=== PATIENT | female | born 1990 | race Caucasian/White ===

== ENCOUNTER 2016-08-27 06:56 | Day surgery (SDC) | payer OTHER ==
[~2016-08-27 06:56] MED LIST: PRENATAL-U CAPS1 CAP PO; PROAIR HFA8.5 GM INH
[2016-08-27 07:33] LABS: URINE BILIRUBIN NEGATIVE (NEG); URINE BLOOD LARGE (NEG); URINE GLUCOSE (UA) NEGATIVE (NEG); URINE KETONE NEGATIVE (NEG); URINE LEUKOCYTE ESTERASE POSITIVE (NEG); URINE NITRITE NEGATIVE (NEG); URINE PROTEIN NEGATIVE (NEG); URINE SPECIFIC GRAVITY 1.015 (1.003-1.030)
[2016-08-27 07:38] LABS: URINE APPEARANCE HAZY; URINE COLOR YELLOW
[2016-08-27 07:42] LABS: URINE RBC 15-20 /[HPF] (0-5)
[2016-08-27 07:43] LABS: URINE AMORPHOUS 1+; URINE MUCUS 1+
[2016-08-27 07:47] LABS: BASO % 0.4 % (0-2); EOS % 1.9 % (0-7); EOSINOPHIL ABSOLUTE COUNT 0.1 tho/cmm (0.0-0.7); HCT-HEMATOCRIT 38.1 % (34.0-49.0); HGB-HEMOGLOBIN 12.7 gm/dl (12.0-15.5); LYMPH % 27.7 % (20-45); MCHC MEAN CORPUSCULAR HGB CONC 33.3 % (32.0-36.0); MCV (MEAN CELL VOLUME) 90.1 fl (82.0-96.0); MEAN PLATELET VOLUME 9.3 cmc (9.4-12.4); MONO % 6.8 % (0-12); MONOCYTE ABSOLUTE COUNT 0.5 tho/cmm (0.0-1.2); NEUTROPHIL ABSOLUTE COUNT 4.7 tho/cmm (1.6-8.0); NEUTROPHIL-AUTOMATED 4.7 tho/cmm (1.6-8.0); NEUTROPHILS % 63.2 % (40-80); PLATELET COUNT 296 tho/cmm (150-450); RED BLOOD COUNT 4.23 mil/cmm (4.00-5.20); RED CELL DISTRIBUTION WIDTH 12.6 % (12.4-16.4); WHITE BLOOD COUNT 7.4 tho/cmm (4.0-10.0)
[2016-08-27 07:57] LABS: PREGNANCY-SERUM NEGATIVE (NEGATIVE)
[2016-08-27 07:59] LABS: INR 0.9 INR (0.9-1.1); PROTHROMBIN TIME 10.5 SECONDS (9.0-13.6)
[2016-08-27] MEDS ORDERED: BACTRIM DS TAB1 EAC2 PO (07:59)
[2016-08-27 08:06] LABS: ANION GAP 13 mmol/L (0-20); BLOOD UREA NITROGEN 6 mg/dl (6-24); CALCIUM 8.7 mg/dl (8.5-10.5); CARBON DIOXIDE-VENOUS 23 mmol/L (22-32); CHLORIDE 107 mmol/l (96-110); CREATININE 0.66 mg/dl (0.50-1.10); GLUCOSE 85 mg/dL (70-110); POTASSIUM 3.7 mmol/L (3.7-5.1); SODIUM 139 mmol/L (135-145); eGFR VALUE FOR BLACK >90 mL/Min
== END 2016-08-27 15:45 ==
LOC: SRG 06:56 → SHSB 06:57 → ORW 08:46 → PACU 10:19 → SHSB 11:00
PROVIDERS: Obstetrics & Gynecology
PROC: 0U504ZZ Destruction of Right Ovary, Percutaneous Endoscopic Approach (ICD-10-PCS; principal; 2016-08-27)
DX: N80.3 Endometriosis of pelvic peritoneum (principal); G40.909 Epilepsy, unspecified, not intractable, without status epilepticus; J45.990 Exercise induced bronchospasm; Z88.1 Allergy status to other antibiotic agents
CPT/HCPCS: J0690; J2270